=== PATIENT | female | born 1990 | race African-American/Black ===

== ENCOUNTER 2017-09-29 00:23 | Emergency (ER) | payer SELFPAY ==
[~2017-09-29] VITALS: Ht 152.4 cm; Wt 113.0 kg
[2017-09-29] MEDS ORDERED: ONDANSETRON HCL 4MG/2ML VIAL IV STA (01:36)
[2017-09-29] MEDS ORDERED: SODIUM CHLORIDE 0.9% 1,000 ML IV ONE (01:36)
[2017-09-29] MEDS ORDERED: MORPHINE SULFATE 4 MG/ML CPJ (NOT FOR IM USE) IV STA (01:36)
[2017-09-29 01:52] LABS: EOSINOPHILS % 2.1 % (0.0-5.0); HEMATOCRIT. 32.4 % (36.0-48.0); LYMPHOCYTES % 13.7 % (20.0-50.0); MEAN CORPUSCULAR HEMOGLOBIN 21.3 pg (28.0-32.0); MEAN CORPUSCULAR VOLUME 69.1 fL (81.0-99.0); MEAN PLATELET VOLUME 7.9 fl (7.4-10.4); MONOCYTES % 8.8 % (2.0-8.0); NEUTROPHILS % 73.4 % (40.0-76.0); PLATELET 170 x1000/uL (130-400); RED BLOOD CELL COUNT 4.69 mill/uL (4.2-5.4); RED CELL DISTRIBUTION WIDTH 15.5 % (11.6-14.6)
[2017-09-29] MEDS ORDERED: MORPHINE SULFATE 10 MG/ML CPJ IV STA (02:00)
[2017-09-29 02:07] LABS: PLATELET ESTIMATE NORMAL
[2017-09-29 02:11] LABS: CARBON DIOXIDE 26 mEq/L (21-32); CHLORIDE 107 mEq/L (98-107); TROPONIN I < 0.02 ng/mL (0.00-0.04)
[2017-09-29] MEDS ORDERED: MORPHINE SULFATE 10 MG/ML CPJ IV SCH (02:15)
[2017-09-29] MEDS ORDERED: METHOCARBAMOL 500MG TABLET PO ONE (06:00)
[2017-09-29 06:03] VITALS: BP 150/79
[2017-09-29] MEDS ORDERED: IOHEXOL-350 100 ML BOTTLE ONE (06:54)
== END 2017-09-29 06:12 | disposition home or self-care (01) ==
LOC: ER 00:57
DX: M54.9 Dorsalgia, unspecified (principal); R07.9 Chest pain, unspecified; I10 Essential (primary) hypertension; E66.9 Obesity, unspecified
CPT/HCPCS: 36415; 71010; 71275; 80048; 83690; 84484; 85025; 85379; 93005; 96361; 96374; 96375; 99285; J2270; J2405; J7030; Q9967; Z7610